=== PATIENT | male | born 1970 | race Caucasian/White ===

== ENCOUNTER 2017-11-07 18:00 | Emergency (ER) | payer OTHER ==
[~2017-11-07] VITALS: Ht 180.3 cm; Wt 81.7 kg
[~2017-11-07 18:00] MED LIST: ACETAMINOPHEN-1 EAC1 PO; ALLOPURINOL 30300 M1; AMOXICILLIN500 M1 PO; BUSPAR30 MG PO; CELEXA 20 MG TA20 MG PO; CLONAZEPAM 0.50.5 M1 PO; HYDROCODON-ACE1 EAC7 PO; LEXAPRO 10 MG T10 M1 PO; MEDROLDOSEPACK PO; NEOSPORIN OINTM15 GM TP; PERCOCET 5-3251 EACH PO; PRINIVIL20 MG PO; RISPERDAL2 MG PO; TRAZODONE HCL50 MG PO; TRILEPTAL300 MG PO; XANAX XR0.5 MG PO; ZOFRAN ODT4 MG PO
[2017-11-07] MEDS ORDERED: ADDERALL 30 MG30 MG PO (18:19)
[2017-11-07 18:44] LABS: ABSOLUTE EOSINOPHILS 0.4 thou/uL (0.0-0.7); ABSOLUTE LYMPHOCYTES 3.2 thou/uL (0.8-5.3); ABSOLUTE NEUTROPHILS 4.3 thou/uL (1.6-8.1); BASOPHILS 0.4 %; EOSINOPHILS 4.4 %; HEMATOCRIT 47.1 % (42.0-52.0); HEMOGLOBIN 16.4 gm/dL (14.0-18.0); LYMPHOCYTES 36.1 %; MCH 31.5 pg (26.0-34.0); MCHC 34.7 g/dL (28.0-37.0); MCV 90.6 fL (80.0-100.0); MONOCYTES 10.7 %; MPV 7.7 fl. (7.2-11.1); NUCLEATED RBCS 0 /100WBC; PLATELET COUNT* 299 thou/uL (150-400); POLYS 48.4 %; RDW-CV 13.1 % (10.5-14.5); WBC 8.9 thou/uL (4.0-11.0)
[2017-11-07 18:48] LABS: CALCIUM 8.9 mg/dL (8.5-10.1); CREATININE 1.1 mg/dL (0.6-1.3); POTASSIUM 3.9 mmol/L (3.5-5.1)
[2017-11-07 18:52] LABS: ALBUMIN 3.5 g/dL (3.4-5.0); TOTAL BILIRUBIN 0.3 mg/dL (<0.1-1.0); TOTAL PROTEIN 6.6 g/dL (6.4-8.2)
[2017-11-07] MEDS ORDERED: ANTIVERT25 MG PO (19:22)
[2017-11-07] MEDS ORDERED: MEDROLDOSEPACK PO (19:22)
[2017-11-07 19:30] VITALS: BP 130/90
--- NOTE | 2017-11-08 13:03 | EKG ---
[place] [address] ELECTROCARDIOGRAM REPORT Name: CANDYMARGOT Chaim Room: [facility]#: [id number] Admission: 11/07/17 Attend Phys: Discharge: 11/07/17 Date of : 70 Report #: [id number] THIS REPORT FOR: //name// [facility] ED Test Date: 2017-11-07 Test Time: 18:47:07 Pat Name: MARGOT GUPTA Department: Room: Gender: M Emergency Management Program Specialist: Hayley BLANTON : 1970 Requested By: Scott Ray Order Number: [id number] MD: Hayder Cuevas Measurements Intervals [place] Rate: 79 P: 48 SC: 136 QRS: 29 QRSD: 100 T: 42 QT: 419 QTc: 481 Interpretive Statements Sinus rhythm Probable left atrial enlargement Borderline prolonged QT interval No previous ECG available for comparison Electronically Signed On 11-08-2017 13:03:41 CDT by Hayder Cuevas [email or web address] <ELECTRONICALLY SIGNED> By: Hayder Cuevas MD, [facility] 11/08/17 1303 1847 1847 Hayder Cuevas MD, FACC /EPI
== END 2017-11-07 19:33 | disposition home or self-care (01) ==
LOC: M.ERS 18:00
PROVIDERS: Nurse Practitioner Psychiatric/Mental Health
DX: R42 Dizziness and giddiness (principal); I10 Essential (primary) hypertension; F41.9 Anxiety disorder, unspecified; F90.9 Attention-deficit hyperactivity disorder, unspecified type; M10.9 Gout, unspecified; F17.210 Nicotine dependence, cigarettes, uncomplicated

== ENCOUNTER 2021-03-03 12:45 | Emergency (ER) | payer OTHER ==
[~2021-03-03] VITALS: Ht 180.3 cm; Wt 83.9 kg
[~2021-03-03 12:45] MED LIST changes: +ADDERALL 30 MG30 MG PO; +ANTIVERT25 MG PO
[2021-03-03] MEDS ORDERED: PERCOCET 5-3251 EACH PO (18:08)
[2021-03-03 18:30] VITALS: BP 117/82
== END 2021-03-03 18:30 | disposition home or self-care (01) ==
LOC: M.ERS 12:45
DX: S52.502A Unspecified fracture of the lower end of left radius, initial encounter for closed fracture (principal); S52.512A Displaced fracture of left radial styloid process, initial encounter for closed fracture; S00.81XA Abrasion of other part of head, initial encounter; M54.9 Dorsalgia, unspecified; R07.81 Pleurodynia; M25.571 Pain in right ankle and joints of right foot; I10 Essential (primary) hypertension; F41.9 Anxiety disorder, unspecified; F90.9 Attention-deficit hyperactivity disorder, unspecified type; F17.210 Nicotine dependence, cigarettes, uncomplicated; Z79.899 Other long term (current) drug therapy; W17.89XA Other fall from one level to another, initial encounter; Y93.89 Activity, other specified; Y92.89 Other specified places as the place of occurrence of the external cause; Y99.8 Other external cause status

== ENCOUNTER 2021-03-14 21:14 | Emergency (ER) | payer OTHER ==
[~2021-03-14] VITALS: Ht 180.3 cm; Wt 83.9 kg
[2021-03-14 21:46] LABS: ABSOLUTE BASOPHILS 0.1 thou/uL (0.0-0.2); ABSOLUTE EOSINOPHILS 0.3 thou/uL (0.0-0.7); ABSOLUTE MONOCYTES 1.2 thou/uL (0.0-1.2); ABSOLUTE NEUTROPHILS 6.6 thou/uL (1.6-8.1); BASOPHILS 0.9 %; EOSINOPHILS 2.2 %; HEMATOCRIT 44.3 % (42.0-52.0); HEMOGLOBIN 15.4 gm/dL (14.0-18.0); LYMPHOCYTES 26.8 %; MCH 31.1 pg (26.0-34.0); MCHC 34.7 g/dL (28.0-37.0); MCV 89.6 fL (80.0-100.0); MONOCYTES 11.1 %; MPV 6.6 fl. (7.2-11.1); NUCLEATED RBCS 0 /100WBC; PLATELET COUNT* 441 thou/uL (150-400); RBC 4.95 mil/uL (4.50-6.00); RDW-CV 13.4 % (10.5-14.5); WBC 11.2 thou/uL (4.0-11.0)
[2021-03-14 21:52] LABS: CALCIUM 9.7 mg/dL (8.5-10.1); CREATININE 1.6 mg/dL (0.6-1.3); POTASSIUM 4.4 mmol/L (3.5-5.1)
[2021-03-15 00:52] LABS: AMP/METHAMP POSITIVE (Negative); BARBITURATES Negative (Negative); BENZODIAZEPINES Negative (Negative); COCAINE Negative (Negative); METHADONE Negative (Negative); OPIATES POSITIVE (Negative); PCP Negative (Negative); THC Negative (Negative)
[2021-03-15] MEDS ORDERED: ZOFRAN ODT4 MG PO (01:14)
[2021-03-15 01:29] VITALS: BP 133/54
--- NOTE | 2021-03-15 09:25 | EKG ---
[place] [address] ELECTROCARDIOGRAM REPORT Name: MARGOT GUPTA Chaim Room: [facility]#: [id number] Admission: 03/14/21 Attend Phys: Discharge: 03/15/21 Date of : 70 Date of Service: 03/14/212113 Report #: [id number] THIS REPORT FOR: //name// [facility] ED Test Date: 2021-03-14 Test Time: 21:14:54 Pat Name: MARGOT GUPTA Department: Room: Gender: [employer]bed Transfer Operator: [facility] : 1970 Requested By: Alba Couch Order Number: [id number] MD: Darren Benitez Measurements Intervals [place] Rate: 96 P: 49 [place]: 136 QRS: 46 QRSD: 88 T: 55 QT: 376 QTc: 476 Interpretive Statements Sinus rhythm Probable left atrial enlargement Borderline prolonged QT interval Compared to ECG 11/07/2017 18:47:07 No significant changes Electronically Signed On 03-15-2021 9:25:32 CDT by Darren Benitez [email or web address] <ELECTRONICALLY SIGNED> By: Darren Benitez MD, [facility] 03/15/21 0925 13 13 Darren Benitez MD, [facility] /EPI
== END 2021-03-15 01:31 | disposition home or self-care (01) ==
LOC: M.ERS 21:14
PROVIDERS: Emergency Medicine
DX: S22.41XA Multiple fractures of ribs, right side, initial encounter for closed fracture (principal); R00.0 Tachycardia, unspecified; I10 Essential (primary) hypertension; F90.9 Attention-deficit hyperactivity disorder, unspecified type; F41.9 Anxiety disorder, unspecified; F17.210 Nicotine dependence, cigarettes, uncomplicated; Z98.890 Other specified postprocedural states; Z79.899 Other long term (current) drug therapy; W11.XXXA Fall on and from ladder, initial encounter; Y93.89 Activity, other specified; Y92.89 Other specified places as the place of occurrence of the external cause; Y99.8 Other external cause status